=== PATIENT | male | born 1940 | race Caucasian/White ===

== ENCOUNTER 2018-01-17 08:59 | Inpatient (IN) | payer OTHER ==
[2018-01-17 10:10] LABS: Bicarbonate 28 mEq/L (21-31); Glucose Level 108 mg/dL (65-120); Lipase 19 U/L (22-51); Potassium 3.8 mEq/L (3.6-5.0); Sodium Level 140 mEq/L (135-145)
[2018-01-17 10:16] LABS: ALT/SGPT 17 IU/L (10-60); AST/SGOT 18 IU/L (10-42); Albumin 4.1 g/dL (3.2-5.5); Alkaline Phosphatase 79 IU/L (42-121); BUN Blood Urea Nitrogen 23 mg/dL (6-20); Bilirubin Direct 0.2 mg/dL (0-0.2); Protein, Total 7.2 g/dL (6.0-8.3)
[2018-01-17] MEDS ORDERED: NA CHLORIDE 0.9% 1,000 ML ONE ×2 (10:55→16:54)
--- NOTE | 2018-01-17 11:08 | RAD REPORT ---
EXAM DESCRIPTION: CTAbdomen Pelvis W Contrast - 01/17/2018 10:34 am CLINICAL HISTORY: Abdominal pain. COMPARISON: None. TECHNIQUE: Biphasic CT imaging of the abdomen and pelvis was performed with 100 ml non-ionic IV cont rast. All CT scans are performed using dose optimization technique as appropriate and may include automated exposure control or mA/KV adjustment according to patient size. FINDINGS: The lung bases are clear. The liver demonstrates several low-density lesions likely benign cysts. The spleen is mildly enlarged . The pancreas, adrenal glands are normal. Several renal cysts are present bilaterally, the largest o n the left measuring 4.8 cm. Moderate left hydronephrosis is present caused by a stone in the proximal left ureter (1230 HU) measu ring 9 mm in transverse dimension. No right-sided hydronephrosis. No bowel obstruction, free air, free fluid or abscess. Prominent fecal retention in the colon is seen . The appendix is normal. No evidence of significant lymphadenopathy. Aortoiliac atherosclerosis. Advanced lumbar degenerative changes with multilevel vacuum disc degeneration. IMPRESSION: 9 mm stone (1230 HU) proximal left ureter resulting in moderate left hydronephrosis. Prominent fecal retention in the colon.
[2018-01-17 11:20] LABS: Absolute Lymphocytes (CBC) 0.7 K/uL (0.7-4.9); Absolute Monocytes 0.5 K/uL (0.1-1.3); Absolute Neutrophil 15.7 K/uL (1.8-8.0); Basophils % 0.5 % (0-1.3); Eosinophils % 1.5 % (0-4.4); Hematocrit 44.2 % (39.6-49.0); Lymphocytes % 4.2 % (15.3-44.8); MCH 16.5 pg (27.0-35.0); MCV 57.9 fL (80-100); MPV 9.5 fL (7.6-11.3); Monocytes % 2.7 % (3.3-12.3); RBC Red Blood Cell Count 7.63 M/uL (4.33-5.43)
[2018-01-17] MEDS ORDERED: ALBUTEROL 2.5 MG/3 ML NEB SOL NEB PRN (11:40)
[2018-01-17] MEDS ORDERED: IPRATROPIUM BROM 0.5MG/2.5ML NEB PRN (11:40)
[2018-01-17] MEDS ORDERED: ONDANSETRON 4 MG/2 ML VIAL IV PRN (11:40)
--- NOTE | 2018-01-17 11:52 | ER ---
Nurse's Notes [facility] Name: Primo Santos Age: 77 yrs Sex: Male : 1940 Arrival Date: 01/17/2018 Time: 09:05 Bed 5 Private MD: Diagnosis: Hydronephrosis with renal and ureteral calculous obstruction Presentation: 01/17 09:13 Presenting complaint: EMS states: EMS states patient states he was constipated 3 days ae1 prior and took milk of magnesia and is now having diarrhea x 3 days. Denies abdominal pain. Transition of care: patient was not received from another setting of care. Onset of symptoms was January 15, 2018 at 06:00. Care prior to arrival: Medication(s) given: Milk of magnesia. 09:13 Acuity: ESTHELA 3 ae1 09:13 Method Of Arrival: EMS: [facility] ae1 12:54 Initial Sepsis Screen: Does the patient meet any 2 criteria? No. Patient's initial ae1 sepsis screen is negative. Does the patient have a suspected source of infection? No. Patient's initial sepsis screen is negative. Historical: - Allergies: 09:13 No Known Allergies; ae1 - Home Meds: 09:13 Metoprolol Tartrate Oral [Active]; Tramadol Oral [Active]; ae1 - PMHx: 09:13 Hypertension; COPD; chronic back pain; ae1 - PSHx: 09:13 Hernia repair; Knee surgery; back surgery T4; ae1 - Immunization history:: Adult Immunizations up to date. - Social history:: Smoking status: Patient/guardian denies using tobacco, but has a distant history of tobacco abuse. Screenin:09 Abuse screen: Denies threats or abuse. Nutritional screening: No deficits noted. ae1 Tuberculosis screening: No symptoms or risk factors identified. Fall Risk. Assessment: 09:15 General: Appears in no apparent distress. comfortable, Behavior is calm, cooperative. ae1 Pain: Complains of pain in abdomen. Neuro: Level of Consciousness is awake, alert, obeys commands, Oriented to person, place, time, situation. Cardiovascular: Heart tones S1 S2 present Patient's skin is warm and dry. Respiratory: Airway is patent Respiratory effort is even, unlabored, Respiratory pattern is regular, symmetrical, Breath sounds are clear bilaterally. GI: Bowel sounds present X 4 quads. 11:07 Reassessment: initial IV to the right AC infiltrated, IV discontinued, ice applied, New ae1 IV established by CT to the right wrist. 12:52 Reassessment: Called 2nd floor to give report to receiving nurse, spoke to Loree Ralph ae1 states they did not know they were receiving a patient so "it will be awhile" She states she will have Jose Antonio the receiving nurse return call. 12:58 : No signs and/or symptoms were reported regarding the genitourinary system. EENT: No ae1 signs and/or symptoms were reported regarding the EENT system. Derm: Bruising that is dark purple, on dorsal aspect of left forearm and left wrist. Musculoskeletal: No signs and/or symptoms reported regarding the musculoskeletal system. 13:10 Reassessment: Per provider Katelynn Parker ok to cancel blood cultures,. ae1 Vital Signs: 09:10 BP 137 / 88; Pulse 84; Resp 19; Temp 98.2(O); Pulse Ox 99% on R/A; Weight 91.17 kg (R); ae1 10:11 BP 120 / 70; Pulse 95; Resp 19; Pulse Ox 95% on R/A; ae1 11:22 BP 154 / 97; Pulse 88; Resp 16; Pulse Ox 99% on R/A; ae1 12:59 BP 159 / 88; Pulse 89; Resp 18 S; Pulse Ox 99% on R/A; ae1 ED Course: 09:05 Patient arrived in ED. jr8 09:05 Keith Muse PA is PHCP. jr8 09:05 Adeel Bar MD is Attending Physician. jr8 09:10 Nde Crowley, ORESTES is Primary Nurse. ae1 09:16 Triage completed. ae1 09:16 Placed in gown. Bed in low position. Call light in reach. Side rails up X2. Adult w/ ae1 patient. electronic device monitor on. Pulse ox on. NIBP on. Warm blanket given. 09:48 Initial lab(s) drawn, by me, sent to lab. Inserted saline lock: 22 gauge in right jb1 antecubital area, using aseptic technique. Blood collected. 10:12 Arm band placed on right wrist. ae1 10:34 CT Abd/Pelvis - W/Contrast In Process Unspecified. EDMS 11:09 Inserted saline lock: 22 gauge in left antecubital area, using aseptic technique. Blood ae1 collected. 11:33 EKG done, by radiation therapy technician. reviewed by Keith GARCIA. at1 11:50 Patricia Monsalve MD is Hospitalizing Provider. jr8 12:27 X-ray completed. Portable x-ray completed in exam room. Patient tolerated procedure jb2 well. 12:59 No provider procedures requiring assistance completed. Patient admitted, IV remains in ae1 place. Administered Medications: 11:07 Drug: NS 0.9% 1000 ml Route: IV; Rate: 1000 ml; Site: right wrist; ae1 12:56 Follow up: IV Status: Completed infusion ae1 12:40 Drug: Rocephin - (cefTRIAXone) 1 grams Route: IVPB; Infused Over: 30 mins; Site: left ae1 antecubital; 12:51 Follow up: IV Status: Completed infusion ae1 Outcome: 11:51 Decision to Hospitalize by Provider. jr8 13:04 Admitted to OR accompanied by nurse, family with patient, via stretcher, room OR suite. ae1 , with chart, Report called to ORESTES Clinton and Rut from OR called to get report before procedure. Patient now to be transferred. to OR. Registration notified. 13:04 Condition: stable 13:04 Instructed on the need for admit, Demonstrated understanding of instructions. 13:18 Patient left the ED. ae1 Signatures: Dispatcher [employer] EDMS Bob John jb1 Bora Farrell2 Keith Muse PA PA jr8 Lesley bertrand, bible reader EKG Tat1 Ned Crowley RN RN ae1
--- NOTE | 2018-01-17 11:52 | EDPHYS ---
Physician Documentation [facility] Name: Primo Santos Age: 77 yrs Sex: Male : 1940 Arrival Date: 01/17/2018 Time: 09:05 Bed 5 Private MD: ED Physician Adeel Bar HPI: 01/17 09:45 This 77 yrs old Male presents to ER via EMS with complaints of Diarrhea, Back Pain. jr8 09:45 The patient presents to the emergency department with nausea, vomiting, diarrhea. jr8 Onset: The symptoms/episode began/occurred acutely, 2 day(s) ago. Possible causes: unknown. The symptoms are aggravated by nothing. The symptoms are alleviated by nothing. Associated signs and symptoms: Pertinent positives: abdominal pain. Severity of symptoms: At their worst the symptoms were mild in the emergency department the symptoms are unchanged. The patient has not experienced similar symptoms in the past. The patient has not recently seen a physician. Patient stated that he felt constipated over the past couple of days. Took milk of magnesia. Since then has had diarrhea and lower abdominal cramping . Historical: - Allergies: 09:13 No Known Allergies; ae1 - Home Meds: 09:13 Metoprolol Tartrate Oral [Active]; Tramadol Oral [Active]; ae1 - PMHx: 09:13 Hypertension; COPD; chronic back pain; ae1 - PSHx: 09:13 Hernia repair; Knee surgery; back surgery T4; ae1 - Immunization history:: Adult Immunizations up to date. - Social history:: Smoking status: Patient/guardian denies using tobacco, but has a distant history of tobacco abuse. ROS: 09:45 Eyes: Negative for injury, pain, redness, and discharge, ENT: Negative for injury, jr8 pain, and discharge, Neck: Negative for injury, pain, and swelling, Cardiovascular: Negative for chest pain, palpitations, and edema, Respiratory: Negative for shortness of breath, cough, wheezing, and pleuritic chest pain, MS/Extremity: Negative for injury and deformity, Skin: Negative for injury, rash, and discoloration, Neuro: Negative for headache, weakness, numbness, tingling, and seizure. 09:45 Abdomen/GI: Positive for diarrhea, abdominal cramps, Negative for nausea and vomiting, abdominal distension, anorexia, dysphagia, hematemesis, black/tarry stool, rectal pain, rectal bleeding, bowel incontinence, flatulence. 09:45 Back: Positive for pain at rest, pain with movement, of the lumbar area. Exam: 09:45 Eyes: Pupils equal round and reactive to light, extra-ocular motions intact. Lids and jr8 lashes normal. Conjunctiva and sclera are non-icteric and not injected. Cornea within normal limits. Periorbital areas with no swelling, redness, or edema. ENT: Nares patent. No nasal discharge, no septal abnormalities noted. Tympanic membranes are normal and external auditory canals are clear. Oropharynx with no redness, swelling, or masses, exudates, or evidence of obstruction, uvula midline. Mucous membranes moist. Neck: Trachea midline, no thyromegaly or masses palpated, and no cervical lymphadenopathy. Supple, full range of motion without nuchal rigidity, or vertebral point tenderness. No Meningismus. Cardiovascular: Regular rate and rhythm with a normal S1 and S2. No gallops, murmurs, or rubs. Normal PMI, no JVD. No pulse deficits. Respiratory: Lungs have equal breath sounds bilaterally, clear to auscultation and percussion. No rales, rhonchi or wheezes noted. No increased work of breathing, no retractions or nasal flaring. Abdomen/GI: Soft, non-tender, with normal bowel sounds. No distension or tympany. No guarding or rebound. No evidence of tenderness throughout. Skin: Warm, dry with normal turgor. Normal color with no rashes, no lesions, and no evidence of cellulitis. MS/ Extremity: Pulses equal, no cyanosis. Neurovascular intact. Full, normal range of motion. Neuro: Awake and alert, GCS 15, oriented to person, place, time, and situation. Cranial nerves II-XII grossly intact. Motor strength 5/5 in all extremities. Sensory grossly intact. Cerebellar exam normal. Normal gait. 09:45 Back: pain, that is mild, of the left low back and left mid back, ROM is painful, with all movement, normal spinal alignment noted, CVA tenderness, is absent, vertebral tenderness, is not appreciated. Vital Signs: 09:10 BP 137 / 88; Pulse 84; Resp 19; Temp 98.2(O); Pulse Ox 99% on R/A; Weight 91.17 kg (R); ae1 10:11 BP 120 / 70; Pulse 95; Resp 19; Pulse Ox 95% on R/A; ae1 11:22 BP 154 / 97; Pulse 88; Resp 16; Pulse Ox 99% on R/A; ae1 12:59 BP 159 / 88; Pulse 89; Resp 18 S; Pulse Ox 99% on R/A; ae1 MDM: 09:05 Patient medically screened. [facility] 11:50 Data reviewed: vital signs, nurses notes, lab test result(s), EKG, radiologic studies, [facility] CT scan, plain films, and as a result, I will admit patient. Data interpreted: Pulse oximetry: on room air is 99 %. Interpretation: normal. Counseling: I had a detailed discussion with the patient and/or guardian regarding: the historical points, exam findings, and any diagnostic results supporting the discharge/admit diagnosis, lab results, radiology results, the need for further work-up and treatment in the hospital. Physician consultation: Opal Randall MD was called at 11:50, was contacted at 11:50, regarding consult, patient's condition, and will see patient. Physician consultation: Patricia Monsalve MD was called at 11:50, was contacted at 11:50, regarding admission, to the medical/surgical unit. and will see patient. 01/17 09:05 Order name: Basic Metabolic Panel; Complete Time: 10:19 [facility] 01/17 09:05 Order name: CBC with Diff [facility] 01/17 09:05 Order name: Creatinine for Radiology; Complete Time: 10:13 [facility] 01/17 09:05 Order name: Hepatic Function; Complete Time: 10:19 [facility] 01/17 09:05 Order name: Lipase; Complete Time: 10:19 [facility] 01/17 11:22 Order name: Manual Differential [facility] 01/17 10:13 Order name: CT Abd/Pelvis - W/Contrast; Complete Time: 11:09 [facility] 01/17 11:28 Order name: XRAY Chest (1 view) [facility] 01/17 11:28 Order name: Protime (+inr) [facility] 01/17 11:28 Order name: Ptt, Activated [facility] 01/17 11:28 Order name: XRAY KUB [facility] 01/17 11:43 Order name: Urinalysis [facility] 01/17 11:43 Order name: Blood Culture [facility] 01/17 09:05 Order name: IV Saline Lock; Complete Time: 09:49 [facility] 01/17 09:05 Order name: Labs collected and sent; Complete Time: 09:49 [facility] 01/17 11:27 Order name: NPO; Complete Time: 12:22 [facility] 01/17 11:28 Order name: EKG - Nurse/Tech; Complete Time: 12:22 [facility] 01/17 11:28 Order name: EKG; Complete Time: 11:28 [facility] 01/17 11:43 Order name: CONS Physician Consult [facility] 01/17 11:43 Order name: NPO [facility] Administered Medications: 11:07 Drug: NS 0.9% 1000 ml Route: IV; Rate: 1000 ml; Site: right wrist; ae1 12:56 Follow up: IV Status: Completed infusion ae1 12:40 Drug: Rocephin - (cefTRIAXone) 1 grams Route: IVPB; Infused Over: 30 mins; Site: left ae1 antecubital; 12:51 Follow up: IV Status: Completed infusion ae1 Disposition: 01/17/18 11:51 Hospitalization ordered by Patricia Monsalve for Inpatient Admission. Preliminary diagnosis is Hydronephrosis with renal and ureteral calculous obstruction. - Bed requested for Telemetry/MedSurg (Inpatient). - Status is Inpatient Admission. ae1 - Condition is Stable. - Problem is new. - Symptoms have improved. UTI on Admission? No Addendum: 01/20/2018 20:55 Co-signature as Attending Physician, Adeel Bar MD. r n Signatures: Dispatcher [employer] [facility] Salina Souza RN RN dw Adeel Bar MD MD rn Roszak, Josh, PA PA jr8 Ned Crowley RN RN ae1 Corrections: (The following items were deleted from the chart) 01/17 11:33 09:45 Back: pain, that is mild, of the lumbar area, ROM is painful, with all movement, jr8 normal spinal alignment noted, CVA tenderness, is absent, vertebral tenderness, is not appreciated, jr8 12:25 11:51 Hospitalization Ordered by Patricia Monsalve MD for Inpatient Admission. Preliminary dw diagnosis is Hydronephrosis with renal and ureteral calculous obstruction. Bed requested for Telemetry/MedSurg (Inpatient). Status is Inpatient Admission. Condition is Stable. Problem is new. Symptoms have improved. UTI on Admission? No. jr8 13:18 12:25 01/17/2018 11:51 Hospitalization Ordered by Patricia Monsalve MD for Inpatient ae1 Admission. Preliminary diagnosis is Hydronephrosis with renal and ureteral calculous obstruction. Bed requested for Telemetry/MedSurg (Inpatient). Status is Inpatient Admission. Condition is Stable. Problem is new. Symptoms have improved. UTI on Admission? No. dw
[2018-01-17] MEDS ORDERED: CEFTRIAXONE/SWI 1gm 1 GM/10 ML SYR ONE (12:24)
[2018-01-17] MEDS ORDERED: CEFTRIAXONE/SWI 1gm 1 GM/10 ML SYR IV SCH (13:00)
[2018-01-17] MEDS ORDERED: Ringers Lactate 1,000 ML IV ONE (13:25)
[2018-01-17 13:26] LABS: Protime INR 1.14
--- NOTE | 2018-01-17 13:29 | RAD REPORT ---
EXAM DESCRIPTION: RAD - Abdomen 1 View (KUB) - 01/17/2018 1:14 pm CLINICAL HISTORY: Abdomen pain. FINDINGS: A 9 millimeter calculus overlies the left transverse process of L4. Moderate to marked left hydronephrosis is present.
[2018-01-17 13:31] LABS: Platelet Estimate INCR
[2018-01-17 13:32] LABS: Anisocytosis 2+; Blood Morphology Comment NOTED (NOT SEEN); Elliptocytes 2+; Hypochromasia 1+; Poikilocytosis 2+
--- NOTE | 2018-01-17 13:32 | RAD REPORT ---
EXAM DESCRIPTION: Shari Single View01/17/2018 1:00 pm CLINICAL HISTORY: Abdominal pain COMPARISON: none FINDINGS: The lungs appear clear of acute infiltrate. The heart is normal size. The aorta is tortuo us/ectatic IMPRESSION: No acute abnormalities displayed
[2018-01-17] MEDS ORDERED: FENTANYL CITR 100 MCG/2 ML ONE (13:37)
[2018-01-17] MEDS ORDERED: PROPOFOL 200 MG/20 ML VIAL IV ONE (13:37)
[2018-01-17] MEDS ORDERED: LIDOCAINE 2% MPF 5 ML VIAL ONE (13:37)
[2018-01-17] MEDS ORDERED: Mastisol Adhesive Liq ONE (14:19)
[2018-01-17] MEDS: TAMSULOSIN 0.4 MG SR CAP PO SCH (15:15)
[2018-01-17] MEDS ORDERED: MORPHINE 4 MG/ML SYR ONE (15:17)
--- NOTE | 2018-01-17 15:49 | EKG ---
Test Date: 2018-01-17 Test Time: 11:33:24 Coordinator Of Health Services: MEMO MEASUREMENT RESULTS: Intervals: Rate: 95 [place]: 182 QRSD: 132 QT: 414 QTc: 520 [place]: P: 111 [place]: 182 QRS: -71 T: 20 INTERPRETIVE STATEMENTS: Sinus rhythm with premature atrial complexes Right bundle branch block Left axis Abnormal ECG No previous ECG available for comparison Electronically Signed On 01-17-18 15:48:53 CDT by Ras Cote
--- NOTE | 2018-01-17 16:25 | P.HP ---
Certification for Inpatient Patient admitted to: Observation With expected LOS: <2 Midnights Patient will require the following post-hospital care: None Practitioner: I am a practitioner with admitting privileges, knowledge of patient current condition, hospital course, and medical plan of care. Services: Services provided to patient in accordance with Admission requirements found in Title 42 Section 412.3 of the Code of Federal Regulations Patient History Date of Service: 01/17/18 Primary Care Provider: None Reason for admission: Nephrolithiasis with hydronephrosis History of Present Illness: This is a 77-year-old male with significant past medical history of hypertension , COPD, back pain who presented to the ED complaining of having some back pain that started about 2-3 days ago and got progressively worse. Patient stated that he has been having some intermittent pain that has been going on for a long time however this pain was different and thus he decided to come to the ER. Complains of Nausea and vomiting as well. Chills positive but denies fever. In the ER patient was found to have a 9 mm stone on the left side along with Elevated WBC. He was thus referred for admission for further care. Allergies No Known Allergies Allergy (Unverified 01/17/18 12:19) - Past Medical/Surgical History Has patient received pneumonia vaccine in the past: No - Social History Smoking Status: Never smoker Alcohol use: No CD- Drugs: No Caffeine use: No Place of Residence: Home Review of Systems General: As per HPI Physical Examination - Vital Signs Temperature: 97.5 F Blood Pressure: 161/95 Pulse: 89 Respirations: 16 - Physical Exam General: Alert, In no apparent distress, Acute distress HEENT: Atraumatic Neck: Supple Respiratory: Clear to auscultation bilaterally, Normal air movement Cardiovascular: Regular rate/rhythm, Normal S1 S2, Abnormal pulses (Tachycardia) Gastrointestinal: Normal bowel sounds, Soft and benign, Tenderness (CVA tenderness on the left ) Musculoskeletal: No tenderness Integumentary: No rashes Neurological: Normal speech, Normal tone, Normal affect, Abnormal strength (Due to the pain ) Lymphatics: No axilla or inguinal lymphadenopathy - Studies Laboratory Data (last 24 hrs) 01/17/18 11:00: WBC 17.2 H, Hgb 12.6 L, Hct 44.2, Plt Count 509 H 01/17/18 09:45: PT 13.5 H, INR 1.14, APTT 40.9 H 01/17/18 09:45: Creatinine 0.76 01/17/18 09:45: Sodium 140, Potassium 3.8, BUN 23 H, Creatinine 0.80, Glucose 108, Total Bilirubin 1.0, AST 18, ALT 17, Alkaline Phosphatase 79, Lipase 19 L Assessment and Plan - Problems (Diagnosis) (1) Sepsis Current Visit: Yes Status: Acute Plan: Most Likely 2.2 to UTI 2.2 to Stone -IV abx and IV fluids -Blood culture and Urine culture pending Qualifiers: Sepsis type: sepsis due to unspecified organism Qualified Code(s): A41.9 - Sepsis, unspecified organism (2) Nephrolithiasis Current Visit: Yes Status: Acute Plan: 9 MM stone on the left. -Urology consulted. Appreciate reccs -Surgery Planned for today -NPO, IV fluids and abx for now (3) Hydronephrosis concurrent with and due to calculi of kidney and ureter Current Visit: Yes Status: Acute Plan: See # 2 (4) HTN (hypertension) Current Visit: Yes Status: Chronic Qualifiers: Hypertension type: essential hypertension Qualified Code(s): I10 - Essential (primary) hypertension (5) COPD (chronic obstructive pulmonary disease) Current Visit: Yes Status: Chronic Qualifiers: COPD type: chronic bronchitis Chronic bronchitis type: mixed simple and mucopurulent Qualified Code(s): J41.8 - Mixed simple and mucopurulent chronic bronchitis Discharge Plan: Home Plan to discharge in: 24 Hours - Advance Directives Does patient have a Living Will: Yes Does patient have a Durable POA for Healthcare: Yes
[2018-01-17] MEDS: NA CHLORIDE 0.9% 1,000 ML IV SCH ×2 (16:59→22:00)
[2018-01-17] MEDS: HYDROCODONE/APAP 5/325 MG TAB PO PRN ×2 (17:54→23:49)
--- NOTE | 2018-01-17 18:13 | RAD REPORT ---
EXAM DESCRIPTION: RAD - Urethrocystogrphy Retrograde - 01/17/2018 2:33 pm CLINICAL HISTORY: Abdominal pain/ICD N20.0. COMPARISON: None. FINDINGS: Two fluoroscopic spot images were obtained for a retrograde cystogram. The left ureter was cannulated and contrast administered. The exam was performed by Dr. Randall. A 9 mm calculus is present within the proximal left ureter. Moderate left hydronephrosis is seen. Subsequently a left ureteral stent was placed. Please refer to Dr. Randall's report for additional findings.
--- NOTE | 2018-01-17 18:33 | CON ---
History Of Present Illness: A 77-year-old gentleman came in with left flank pain. CAT scan showed a 9-mm stone at the left UPJ with hydronephrosis. The patient is in pain. He first started out with constipation and took some milk of magnesia and then diarrhea and then some abdominal flank pain. Wh en he came to the ER, he was found to have a kidney stone. He has a history of passing [address] in his life. He just moved back to [place] from [place] in 2003. He has never had stone surgery . Never had stents or ESWL performed before. Past Medical History: Significant for hypertension, COPD, and chronic back pain. Allergies: NO KNOWN DRUG ALLERGIES. Home Medications: Metoprolol tartrate and tramadol for back pain. Past Surgical History: Hernia repair, knee surgery, back surgery T4. Immunizations: Up-to-date. Social History: Distant history of smoking, but none recently. Physical Examination: Vital Signs: Stable. BP 137/88, pulse 84, respirations 19, temperature 98.2, and sats 99%. HEENT: Atraumatic, normocephalic. Chest: Clear. Heart: Regular rate and rhythm. Abdomen: Soft, nontender. Slight left flank tenderness. : Has a phimosis. The testicles are descended. No masses. Nontender. Extremities: Normal range of motion. Laboratory Data: BUN is 23. White count 17.2, H and H 12 and 44, and platelet count 509. Coagulati on, PT normal at 13.5 and PTT 40.9. Chemistry shows sodium 140, potassium 3.8, chloride 106, carbon dioxide 28, BUN 23, and creatinine 0.8. GFR greater than 90, glucose 108, and calcium 9.2. Bilirubin and LFTs all normal. Lipase is low at 19. UA pending. Assessment: A 9-mm left ureteropelvic junction stone and elevated white count. The patient received a dose of Rocephin in the ER. He is going to go for cystoscopy retrograde and stent placement, not only for the pain, but for possible rule out infection with the elevated white count. We will try to send a urine from the renal pelvis for this. All the general information, alternatives, and risks w ere given and I will wait about 8 hours after the patient was n.p.o. to proceed with surgery. Thank you very much indication. LIAT/RITESH Voice ID: [id number] Report ID: [id number]
[2018-01-17] MEDS ORDERED: MORPHINE 4 MG/ML SYR IV PRN (20:03)
[2018-01-18] MEDS ORDERED: Morphine 2 MG/2 ML SYR IV PRN (06:58)
[2018-01-18 07:47] LABS: Absolute Lymphocytes (CBC) 0.5 K/uL (0.7-4.9); Absolute Monocytes 0.6 K/uL (0.1-1.3); Absolute Neutrophil 18.9 K/uL (1.8-8.0); Basophils % 0.4 % (0-1.3); Eosinophils % 0.7 % (0-4.4); Hematocrit 44.7 % (39.6-49.0); Lymphocytes % 2.6 % (15.3-44.8); MCH 16.6 pg (27.0-35.0); MCV 58.3 fL (80-100); Monocytes % 3.1 % (3.3-12.3)
[2018-01-18 07:56] LABS: RBC Red Blood Cell Count 7.67 M/uL (4.33-5.43)
[2018-01-18] MEDS: NA CHLORIDE 0.9% 1,000 ML IV SCH ×3 (08:00→17:48)
[2018-01-18 08:18] LABS: BUN Blood Urea Nitrogen 19 mg/dL (6-20); Bicarbonate 25 mEq/L (21-31); Glucose Level 93 mg/dL (65-120); Potassium 4.3 mEq/L (3.6-5.0); Sodium Level 139 mEq/L (135-145)
[2018-01-18] MEDS ORDERED: ONDANSETRON 4 MG/2 ML VIAL IV PRN (08:40)
[2018-01-18] MEDS ORDERED: CEFTRIAXONE 1 GM/NS 50 ML 1 GM/50 ML BAG IV SCH (09:00)
[2018-01-18] MEDS: CEFTRIAXONE/SWI 1gm 1 GM/10 ML SYR IV SCH (09:00)
[2018-01-18] MEDS: TAMSULOSIN 0.4 MG SR CAP PO SCH (09:04)
[2018-01-18] MEDS: HYDROCODONE/APAP 5/325 MG TAB PO PRN ×2 (10:02→21:53)
--- NOTE | 2018-01-18 10:51 | P.PN ---
Subjective Date of Service: 01/18/18 Primary Care Provider: None Chief Complaint: Nephrolithiasis with hydronephrosis pt seen and examined with RN. Still complains about pain and having diarrhea. No other complains to offer at this time. Review of Systems General: As per HPI Physical Examination - Vital Signs Temperature: 98.1 F Blood Pressure: 129/59 Pulse: 84 Respirations: 16 Pulse Ox (%): 96 - Physical Exam General: Alert, In no apparent distress, Oriented x3 HEENT: Atraumatic, PERRLA, EOMI Neck: Supple, JVD not distended Respiratory: Clear to auscultation bilaterally, Normal air movement Cardiovascular: Regular rate/rhythm, Normal S1 S2 Gastrointestinal: Normal bowel sounds, No tenderness Musculoskeletal: No tenderness Integumentary: No rashes Neurological: Normal speech, Normal tone, Normal affect Lymphatics: No axilla or inguinal lymphadenopathy - Studies Laboratory Data (last 24 hrs) 01/17/18 11:00: WBC 17.2 H, Hgb 12.6 L, Hct 44.2, Plt Count 509 H 01/17/18 09:45: PT 13.5 H, INR 1.14, APTT 40.9 H Medications List Reviewed: Yes Assessment & Plan - Problems (Diagnosis) (1) Sepsis Current Visit: Yes Status: Acute Plan: Most Likely 2.2 to UTI 2.2 to Stone -IV Rocephin and IV fluids -Blood culture and Urine culture pending Qualifiers: Sepsis type: sepsis due to unspecified organism Qualified Code(s): A41.9 - Sepsis, unspecified organism (2) Nephrolithiasis Current Visit: Yes Status: Acute Plan: 9 MM stone on the left. -Urology consulted. Appreciate reccs -S/p Cysto with stent placement -CLD, IV fluids and abx for now (3) Hydronephrosis concurrent with and due to calculi of kidney and ureter Current Visit: Yes Status: Acute Plan: See # 2 (4) HTN (hypertension) Current Visit: Yes Status: Chronic Qualifiers: Hypertension type: essential hypertension Qualified Code(s): I10 - Essential (primary) hypertension (5) COPD (chronic obstructive pulmonary disease) Current Visit: Yes Status: Chronic Qualifiers: COPD type: chronic bronchitis Chronic bronchitis type: mixed simple and mucopurulent Qualified Code(s): J41.8 - Mixed simple and mucopurulent chronic bronchitis Discharge Plan: Home Plan to discharge in: 48 Hours - Code Status/Comfort Care Code Status Assessed: Yes Critical Care: No
--- NOTE | 2018-01-18 15:55 | PN ---
Subjective: The patient had a fever last night. Does not feel like himself. He is not tolerating h is breakfast much. At 1:29 a.m., his temperature was 99, midnight it was 99.8. Latest temperature i s 98.9, pulse 91, respirations 18, BP 151/85. Objective: His right arm is swollen with the IV, so we will need to get that changed to the left arm . His white count was up today to 20,300. His urine culture is still pending. Assessment: Status post stent of 9 mm left UPJ stone. The patient had a fever. We will await cultu re results, his blood culture and urine culture. He has urine culture pending. Blood cultures were canceled. We will continue IV antibiotics. He is currently on Rocephin 1 g daily for now. He may a mbulate with assistance today. We will check another white count tomorrow. LIAT/RITESH Voice ID: [id number] Report ID: [id number]
[2018-01-18] MEDS ORDERED: POLYETHYL GLY 3350 17 GM/DOSE PO ONE (16:27)
[2018-01-19] MEDS: NA CHLORIDE 0.9% 1,000 ML IV SCH ×2 (05:00→15:12)
[2018-01-19 06:31] LABS: Absolute Lymphocytes (CBC) 0.6 K/uL (0.7-4.9); Absolute Monocytes 0.6 K/uL (0.1-1.3); Absolute Neutrophil 17.8 K/uL (1.8-8.0); Basophils % 0.5 % (0-1.3); Eosinophils % 1.6 % (0-4.4); Hematocrit 43.1 % (39.6-49.0); Lymphocytes % 3.3 % (15.3-44.8); MCH 16.7 pg (27.0-35.0); MCV 57.7 fL (80-100); MPV 9.4 fL (7.6-11.3); RBC Red Blood Cell Count 7.47 M/uL (4.33-5.43)
[2018-01-19] MEDS: TAMSULOSIN 0.4 MG SR CAP PO SCH (08:43)
[2018-01-19] MEDS: CEFTRIAXONE/SWI 1gm 1 GM/10 ML SYR IV SCH (08:44)
[2018-01-19] MEDS ORDERED: VANCOMYCIN 1.25 GM in NA CHLORIDE 0.9% 250 ML IVPB SCH (09:00)
[2018-01-19] MEDS: VANCOMYCIN 1.75 GM in NA CHLORIDE 0.9% 500 ML IVPB SCH ×2 (10:41→22:10)
--- NOTE | 2018-01-19 11:05 | RAD REPORT ---
EXAM DESCRIPTION: VAS - Extremity Venous Uni Ltd - 01/19/2018 10:28 am CLINICAL HISTORY: Right upper extremity pain and swelling COMPARISON: None. FINDINGS: Right upper extremity venous system was interrogated with Doppler technique. Normal flow, compressibility and augmentation was noted. There is no DVT present.Mild soft tissue edema is seen in the antecubital fossa region. IMPRESSION: No evidence of right upper extremity deep venous thrombosis.
[2018-01-19] MEDS: HYDROCODONE/APAP 5/325 MG TAB PO PRN ×2 (12:47→20:45)
--- NOTE | 2018-01-19 12:47 | RAD REPORT ---
EXAM DESCRIPTION: RAD - Abdomen 1 View (KUB) - 01/19/2018 9:36 am CLINICAL HISTORY: Stent placement. COMPARISON: 01/17/2022 FINDINGS: The bowel gas pattern is non-obstructive. No evidence of free air or pneumatosis. Left-wilmar ed double-J stent is in place. The proximal aspect the left-sided stent is somewhat redundantly coile d but in the expected renal pelvis location. 9 mm calculus is seen along the course of the proximal s tent the left of the L3 level. Distal aspect the stent is the expected position.
--- NOTE | 2018-01-19 12:56 | P.PN ---
Subjective Date of Service: 01/19/18 Primary Care Provider: None Chief Complaint: Nephrolithiasis with hydronephrosis pt seen and examined with RN. Still complains about pain and having diarrhea. No other complains to offer at this time. Review of Systems General: As per HPI Physical Examination - Vital Signs Temperature: 98.0 F Blood Pressure: 167/79 Pulse: 99 Respirations: 16 Pulse Ox (%): 97 - Physical Exam General: Alert, In no apparent distress HEENT: Atraumatic, PERRLA, EOMI Neck: Supple, JVD not distended Respiratory: Clear to auscultation bilaterally, Normal air movement Cardiovascular: Regular rate/rhythm, Normal S1 S2 Gastrointestinal: Normal bowel sounds, No tenderness Musculoskeletal: No tenderness Integumentary: No rashes Neurological: Normal speech, Normal tone, Normal affect Lymphatics: No axilla or inguinal lymphadenopathy - Studies Microbiology Data (last 24 hrs): 01/17/18 14:30 Catheterized Urine [place] Count - Final <10,000 CFU/ML. 01/17/18 14:30 Catheterized Urine - Final Medications List Reviewed: Yes Assessment & Plan - Problems (Diagnosis) (1) Sepsis Current Visit: Yes Status: Acute Plan: Most Likely 2.2 to UTI 2.2 to Stone -IV Rocephin and IV fluids -Blood culture and Urine culture Negative -Leukocytosis improving today. Qualifiers: Sepsis type: sepsis due to unspecified organism Qualified Code(s): A41.9 - Sepsis, unspecified organism (2) Nephrolithiasis Current Visit: Yes Status: Acute Plan: 9 MM stone on the left. -Urology consulted. Appreciate reccs -S/p Cysto with stent placement -CLD, IV fluids and abx for now -Lithotripsy on saturday (3) Hydronephrosis concurrent with and due to calculi of kidney and ureter Current Visit: Yes Status: Acute Plan: See # 2 (4) HTN (hypertension) Current Visit: Yes Status: Chronic Qualifiers: Hypertension type: essential hypertension Qualified Code(s): I10 - Essential (primary) hypertension (5) COPD (chronic obstructive pulmonary disease) Current Visit: Yes Status: Chronic Qualifiers: COPD type: chronic bronchitis Chronic bronchitis type: mixed simple and mucopurulent Qualified Code(s): J41.8 - Mixed simple and mucopurulent chronic bronchitis Discharge Plan: Home Plan to discharge in: 48 Hours Critical Care: Yes
--- NOTE | 2018-01-19 13:03 | RAD REPORT ---
EXAM DESCRIPTION: CT - Abdomen Pelvis Wo Contrast - 01/19/2018 9:51 am CLINICAL HISTORY: Abdominal pain. Stent placement COMPARISON: 01/17/2015 TECHNIQUE: CT imaging of the abdomen and pelvis was performed without contrast. Solid organ, bowel a nd vascular assessment is limited due to lack of IV and oral contrast. All CT scans are performed using dose optimization technique as appropriate and may include automated exposure control or mA/KV adjustment according to patient size. FINDINGS: Since the prior examination, left-sided double-J stent has been placed. The proximal aspec t of the stent is within the left renal pelvis, although slightly redundantly coiled. Along the proxi mal aspect of the stent, the previously noted 9 mm stone is noted, unchanged in position. The distal aspect of the stent is in the urinary bladder abutting the Ron catheter bulb. Small amount of air s een in the left collecting system along with mild hyperdense fluid which could be mild blood product. Right nephrolithiasis is noted with stone present measuring 4 mm. No right-sided hydronephrosis. No additional new finding is seen since 01/17/[address] study. IMPRESSION: A left sided double-J stent has been placed as detailed above since the comparative stud y. The proximal aspect of the stent is somewhat redundant coiled but lies within the left renal pelvi s. Proximal left ureter stone (9 mm) remains in place adjacent to the stent. Mild increased density i n the left pelvicaliceal system probably represents a small amount of blood product. A limited non-contrast examination was performed as detailed.
--- NOTE | 2018-01-19 14:07 | PN ---
Subjective: The patient complained of persistent back pain. This was the same as when he came in. He has a history of chronic pains any way. He has been having bowel movements. He also complained a bout large movement this morning that he thought was kind of rough. He says he has low confidence in the nursing care. Objective: His white count is 19,000 down from 21,000, not as much as I expected, so we are going to cover with some vancomycin along with the Rocephin for more gram-positive coverage. Cultures have n ot grown anything so far. We will also repeat a CT scan, make sure the hydronephrosis is not any wor se. Check location of the stone. Physical therapy to ambulate him. Head nurse to look into his com plaints. Restart his SCDs and he says he has some blood disorders, so the son will get a whole of th e labs and bring them so we can see. What he is talking about is to do phlebotomy sometime, so it so unds like he has erythrocytosis or something like that, so we will try to wait for this infection to get better. LIAT/RITESH Voice ID: [id number] Report ID: [id number]
[2018-01-19] MEDS: DOCUSATE NA 100 MG CAP PO SCH (20:46)
[2018-01-20] MEDS: NA CHLORIDE 0.9% 1,000 ML IV SCH ×3 (01:00→21:34)
[2018-01-20] MEDS: HYDROCODONE/APAP 5/325 MG TAB PO PRN ×3 (06:40→21:24)
[2018-01-20] MEDS: TAMSULOSIN 0.4 MG SR CAP PO SCH (10:57)
[2018-01-20] MEDS: CEFTRIAXONE/SWI 1gm 1 GM/10 ML SYR IV SCH (10:57)
[2018-01-20] MEDS: DOCUSATE NA 100 MG CAP PO SCH ×2 (10:57→21:23)
[2018-01-20 11:53] LABS: Absolute Lymphocytes (CBC) 0.6 K/uL (0.7-4.9); Absolute Monocytes 0.6 K/uL (0.1-1.3); Absolute Neutrophil 16.8 K/uL (1.8-8.0); Basophils % 0.6 % (0-1.3); Eosinophils % 1.8 % (0-4.4); Hematocrit 43.7 % (39.6-49.0); Lymphocytes % 3.4 % (15.3-44.8); MCH 16.6 pg (27.0-35.0); MCV 57.7 fL (80-100); MPV 10.1 fL (7.6-11.3); Monocytes % 3.1 % (3.3-12.3); RBC Red Blood Cell Count 7.58 M/uL (4.33-5.43)
[2018-01-20 12:26] LABS: Platelet Estimate ADEQ; Toxic Granulation 1+; Urine White Blood Cell Casts DIFF
[2018-01-20 12:27] LABS: Anisocytosis 1+; Blood Morphology Comment NOTED (NOT SEEN); Hypochromasia 3+; Platelets, Giant PRESENT
[2018-01-20] MEDS: VANCOMYCIN 1.75 GM in NA CHLORIDE 0.9% 500 ML IVPB SCH ×2 (12:50→22:00)
--- NOTE | 2018-01-20 18:11 | PN ---
Subjective: Family brought in the patient in laboratory. Apparently, he has some blood dyscrasias, where has elevated white count, H and H, and platelets. He was treated by vineyard tender/oncologist treasure ramos. Therefore, his white count is normally high about 15 to 16, yesterday was 19. Today, his wh ite count is pending. I think with this in mind, it is safe to go ahead and treat the patient's 9 mm stone seen along the course of the proximal stent to the level of L3. We can do this tomorrow and h opefully can be discharged after that. At first, he was concerned about elevated white count due to infection, but was having no fevers and no other serious symptoms. CT scan revealed no obstruction, so we will try to expedite this for him. LIAT/RITESH Voice ID: [id number] Report ID: [id number]
[2018-01-20] MEDS: METOPROLOL TAR 25 MG TAB PO SCH (21:25)
[2018-01-20] MEDS: PANTOPRAZOLE 40MG TABLET PO SCH (21:26)
[2018-01-21] MEDS: HYDROCODONE/APAP 5/325 MG TAB PO PRN ×2 (02:11→14:19)
[2018-01-21 05:16] LABS: Absolute Lymphocytes (CBC) 0.7 K/uL (0.7-4.9); Absolute Monocytes 0.6 K/uL (0.1-1.3); Absolute Neutrophil 16.8 K/uL (1.8-8.0); Basophils % 0.3 % (0-1.3); Eosinophils % 2.4 % (0-4.4); Hematocrit 45.2 % (39.6-49.0); Lymphocytes % 3.6 % (15.3-44.8); MCV 58.5 fL (80-100); MPV 9.6 fL (7.6-11.3); Monocytes % 3.5 % (3.3-12.3); RBC Red Blood Cell Count 7.73 M/uL (4.33-5.43)
[2018-01-21] MEDS: NA CHLORIDE 0.9% 1,000 ML IV SCH ×2 (05:36→20:00)
[2018-01-21 05:51] LABS: ALT/SGPT 13 IU/L (10-60); AST/SGOT 20 IU/L (10-42); Alkaline Phosphatase 71 IU/L (42-121); BUN Blood Urea Nitrogen 14 mg/dL (6-20); Bicarbonate 23 mEq/L (21-31); Glucose Level 93 mg/dL (65-120); Potassium 4.3 mEq/L (3.6-5.0); Protein, Total 5.5 g/dL (6.0-8.3); Sodium Level 139 mEq/L (135-145)
[2018-01-21] MEDS ORDERED: TRAZODONE 50 MG TABLET PO PRN (09:45)
[2018-01-21] MEDS: DOCUSATE NA 100 MG CAP PO SCH ×2 (09:58→22:04)
[2018-01-21] MEDS: PANTOPRAZOLE 40MG TABLET PO SCH ×2 (09:58→22:04)
[2018-01-21] MEDS: TAMSULOSIN 0.4 MG SR CAP PO SCH (09:58)
[2018-01-21] MEDS: CEFTRIAXONE/SWI 1gm 1 GM/10 ML SYR IV SCH (09:58)
[2018-01-21] MEDS: METOPROLOL TAR 25 MG TAB PO SCH ×2 (09:58→22:04)
[2018-01-21] MEDS ORDERED: VANCOMYCIN 1.75 GM in NA CHLORIDE 0.9% 500 ML IVPB SCH (10:00)
[2018-01-21] MEDS ORDERED: Ringers Lactate 1,000 ML IV ONE ×2 (10:43→13:28)
[2018-01-21] MEDS ORDERED: FENTANYL CITR 100 MCG/2 ML ONE (10:52)
[2018-01-21] MEDS ORDERED: MIDAZOLAM HCL 2 MG/2 ML INJ ONE (10:52)
[2018-01-21] MEDS ORDERED: PROPOFOL 200 MG/20 ML VIAL IV ONE (10:52)
[2018-01-21] MEDS ORDERED: EPHEDRINE SULF 50 MG/5 ML SYR ONE (11:58)
--- NOTE | 2018-01-21 12:16 | P.PN ---
Subjective Date of Service: 01/21/18 Primary Care Provider: None Chief Complaint: Nephrolithiasis with hydronephrosis pt seen and examined with RN. Case D/W with Cardiology. Pt has not been able to sleep for last two nights per family. However, he currently is very sleepy. Awaiting lithotripsy today Review of Systems General: As per HPI Physical Examination - Vital Signs Temperature: 98.8 F Blood Pressure: 161/95 Pulse: 84 Respirations: 18 Pulse Ox (%): 96 - Physical Exam General: Alert, In no apparent distress HEENT: Atraumatic, PERRLA, EOMI Neck: Supple, JVD not distended Respiratory: Clear to auscultation bilaterally, Normal air movement Cardiovascular: Regular rate/rhythm, Normal S1 S2 Gastrointestinal: Normal bowel sounds, No tenderness Musculoskeletal: No tenderness Integumentary: No rashes Neurological: Normal speech, Normal tone, Normal affect Lymphatics: No axilla or inguinal lymphadenopathy - Studies Medications List Reviewed: Yes Assessment & Plan - Problems (Diagnosis) (1) Sepsis Onset Date: 01/20/18 Current Visit: Yes Status: Acute Plan: Most Likely 2.2 to UTI 2.2 to Stone -IV Rocephin and IV fluids -Blood culture and Urine culture Negative -Leukocytosis improving today. Qualifiers: Sepsis type: sepsis due to unspecified organism Qualified Code(s): A41.9 - Sepsis, unspecified organism (2) Nephrolithiasis Onset Date: 01/20/18 Current Visit: Yes Status: Acute Plan: 9 MM stone on the left. -Urology consulted. Appreciate reccs -S/p Cysto with stent placement -CLD, IV fluids and abx for now -Lithotripsy today (3) Hydronephrosis concurrent with and due to calculi of kidney and ureter Onset Date: 01/20/18 Current Visit: Yes Status: Acute Plan: See # 2 (4) HTN (hypertension) Onset Date: 01/20/18 Current Visit: Yes Status: Chronic Qualifiers: Hypertension type: essential hypertension Qualified Code(s): I10 - Essential (primary) hypertension (5) COPD (chronic obstructive pulmonary disease) Onset Date: 01/20/18 Current Visit: Yes Status: Chronic Qualifiers: COPD type: chronic bronchitis Chronic bronchitis type: mixed simple and mucopurulent Qualified Code(s): J41.8 - Mixed simple and mucopurulent chronic bronchitis
[2018-01-21] MEDS ORDERED: Mastisol Adhesive Liq ONE (12:23)
[2018-01-21] MEDS ORDERED: KETOROLAC 30 MG/ML INJ ONE (12:29)
[2018-01-21] MEDS ORDERED: MORPHINE 4 MG/ML SYR IV PRN (14:26)
--- NOTE | 2018-01-21 15:18 | P.DS ---
Admission Date: 01/17/18 Discharge Date: 01/21/18 Primary Care Provider: Lennox Disposition: ROUTINE DISCHARGE Discharge Condition: GOOD Reason for Admission: Nephrolithiasis with hydronephrosis Consultations: urology Procedures: Cystoscopy with Stent placement and Lithotripsy - Problems (1) Sepsis Onset Date: 01/20/18 Current Visit: Yes Status: Acute Qualifiers: Sepsis type: sepsis due to unspecified organism Qualified Code(s): A41.9 - Sepsis, unspecified organism (2) Nephrolithiasis Onset Date: 01/20/18 Current Visit: Yes Status: Acute (3) Hydronephrosis concurrent with and due to calculi of kidney and ureter Onset Date: 01/20/18 Current Visit: Yes Status: Acute (4) HTN (hypertension) Onset Date: 01/20/18 Current Visit: Yes Status: Chronic Qualifiers: Hypertension type: essential hypertension Qualified Code(s): I10 - Essential (primary) hypertension (5) COPD (chronic obstructive pulmonary disease) Onset Date: 01/20/18 Current Visit: Yes Status: Chronic Qualifiers: COPD type: chronic bronchitis Chronic bronchitis type: mixed simple and mucopurulent Qualified Code(s): J41.8 - Mixed simple and mucopurulent chronic bronchitis Brief History of Present Illness: This is a 77-year-old male with significant past medical history of hypertension , COPD, back pain who presented to the ED complaining of having some back pain that started about 2-3 days ago and got progressively worse. Patient stated that he has been having some intermittent pain that has been going on for a long time however this pain was different and thus he decided to come to the ER. Complains of Nausea and vomiting as well. Chills positive but denies fever. In the ER patient was found to have a 9 mm stone on the left side along with Elevated WBC. He was thus referred for admission for further care. Hospital Course: Overall during the hospital stay patient remained stable. The patient was initially admitted to the hospital for sepsis most likely secondary to nephrolithiasis most likely secondary to urinary stone. Patient on a cystoscopy done with stent placement by urology. Patient remained on IV antibiotics and was scheduled for lithotripsy. Patient had lithotripsy done today in the hospital and was able to successfully complete the stones. Urology then recommend the patient be discharged home under stable condition with prescription for Ultram and Keflex and was to follow up with urology clinic in about 1 week post discharge. While here in the hospital patient chronic conditions remained stable. Vital Signs/Physical Exam: Temp Pulse Resp BP Pulse Ox 97.6 F 90 16 150/79 H 96 01/21/18 14:02 01/21/18 14:02 01/21/18 14:02 01/21/18 14:02 01/21/18 12:16 General: Alert, In no apparent distress HEENT: Atraumatic, PERRLA, EOMI Neck: Supple, JVD not distended Respiratory: Clear to auscultation bilaterally, Normal air movement Cardiovascular: Regular rate/rhythm, Normal S1 S2 Gastrointestinal: Normal bowel sounds, No tenderness Musculoskeletal: No tenderness Integumentary: No rashes Neurological: Normal speech, Normal tone, Normal affect Lymphatics: No axilla or inguinal lymphadenopathy Laboratory Data at Discharge: WBC 18.7 K/uL (4.3-10.9) H 01/21/18 04:51 Hgb 13.2 g/dL (13.6-17.9) L 01/21/18 04:51 Hct 45.2 % (39.6-49.0) 01/21/18 04:51 Plt Count 404 K/uL (152-406) 01/21/18 04:51 PT 13.5 SECONDS (9.5-12.5) H 01/17/18 09:45 INR 1.14 01/17/18 09:45 APTT 40.9 SECONDS (24.3-36.9) H 01/17/18 09:45 Sodium 139 mEq/L (135-145) 01/21/18 04:51 Potassium 4.3 mEq/L (3.6-5.0) 01/21/18 04:51 BUN 14 mg/dL (6-20) 01/21/18 04:51 Creatinine 0.72 mg/dL (0.61-1.24) 01/21/18 04:51 Glucose 93 mg/dL (65-120) 01/21/18 04:51 Total Bilirubin 1.0 mg/dL (0.3-1.2) 01/21/18 04:51 AST 20 IU/L (10-42) 01/21/18 04:51 ALT 13 IU/L (10-60) 01/21/18 04:51 Alkaline Phosphatase 71 IU/L (42-121) 01/21/18 04:51 Lipase 19 U/L (22-51) L 01/17/18 09:45 Home Medications: Cephalexin [Keflex] 500 mg PO DAILY #21 cap 01/17/18 Docusate Calcium [Surfak] 240 mg PO BID #28 cap 01/17/18 Metoprolol Tartrate [Lopressor] 25 mg PO BID 01/17/18 Nabumetone [Relafen] 500 mg PO DAILY 01/17/18 Omeprazole 20 mg PO BID 01/17/18 Ondansetron [Zofran] 4 mg PO Q8HR PRN 01/17/18 Oxybutynin Chloride [Oxybutynin Chloride ER] 10 mg PO DAILY #7 tab.er.24 traMADol HCL [Ultram] 50 mg PO Q6H PRN #28 tab 01/17/18 New Medications: Cephalexin [Keflex] 500 mg PO DAILY #21 cap Docusate Calcium [Surfak] 240 mg PO BID #28 cap Oxybutynin Chloride [Oxybutynin Chloride ER] 10 mg PO DAILY #7 tab.er.24 traMADol HCL [Ultram] 50 mg PO Q6H PRN #28 tab PRN Reason: Pain Diet: Regular Activity: Ad leroy Followup: Opal Randall MD [ACTIVE - CAN ADMIT] - 1 Week
[2018-01-21 17:50] LABS: Blood Gas Oxyhemoglobin 91.6 % (94-97)
[2018-01-21 17:57] LABS: Absolute Lymphocytes (CBC) 0.6 K/uL (0.7-4.9); Absolute Monocytes 0.4 K/uL (0.1-1.3); Absolute Neutrophil 13.9 K/uL (1.8-8.0); Basophils % 0.6 % (0-1.3); Eosinophils % 2.5 % (0-4.4); Hematocrit 45.3 % (39.6-49.0); MCH 16.6 pg (27.0-35.0); MCV 58.3 fL (80-100); MPV 9.2 fL (7.6-11.3); Monocytes % 2.7 % (3.3-12.3); RBC Red Blood Cell Count 7.76 M/uL (4.33-5.43)
[2018-01-21 17:59] LABS: Alkaline Phosphatase 65 IU/L (42-121); Bicarbonate 21 mEq/L (21-31); Glucose Level 76 mg/dL (65-120); Potassium 3.9 mEq/L (3.6-5.0); Sodium Level 139 mEq/L (135-145)
[2018-01-21 18:11] LABS: Anisocytosis 2+; Blood Morphology Comment NOTED (NOT SEEN); Hypochromasia 2+; Platelet Estimate INCR; Poikilocytosis 1+
[2018-01-21 18:12] LABS: Elliptocytes 1+
[2018-01-22 06:34] LABS: Absolute Lymphocytes (CBC) 0.7 K/uL (0.7-4.9); Absolute Monocytes 0.5 K/uL (0.1-1.3); Basophils % 0.9 % (0-1.3); Eosinophils % 3.9 % (0-4.4); Hematocrit 43.6 % (39.6-49.0); Lymphocytes % 4.1 % (15.3-44.8); MCH 16.7 pg (27.0-35.0); MPV 9.2 fL (7.6-11.3); Monocytes % 3.3 % (3.3-12.3); RBC Red Blood Cell Count 7.39 M/uL (4.33-5.43)
[2018-01-22] MEDS: NA CHLORIDE 0.9% 1,000 ML IV SCH ×2 (06:34→09:10)
[2018-01-22 06:46] LABS: ALT/SGPT 13 IU/L (10-60); AST/SGOT 16 IU/L (10-42); Albumin 2.7 g/dL (3.2-5.5); Alkaline Phosphatase 60 IU/L (42-121); BUN Blood Urea Nitrogen 13 mg/dL (6-20); Bicarbonate 24 mEq/L (21-31); Bilirubin Total 0.9 mg/dL (0.3-1.2); Glucose Level 70 mg/dL (65-120); Potassium 3.9 mEq/L (3.6-5.0); Protein, Total 5.1 g/dL (6.0-8.3); Sodium Level 141 mEq/L (135-145)
[2018-01-22] MEDS: CEFTRIAXONE/SWI 1gm 1 GM/10 ML SYR IV SCH (09:10)
[2018-01-22] MEDS: DOCUSATE NA 100 MG CAP PO SCH (09:10)
[2018-01-22] MEDS: TAMSULOSIN 0.4 MG SR CAP PO SCH (09:10)
[2018-01-22] MEDS: PANTOPRAZOLE 40MG TABLET PO SCH (09:10)
[2018-01-22] MEDS: METOPROLOL TAR 25 MG TAB PO SCH (09:10)
[2018-01-22] MEDS ORDERED: TRAMADOL HCL 50 MG TAB PO PRN (11:39)
--- NOTE | 2018-01-22 11:39 | P.PN ---
Subjective Date of Service: 01/22/18 Primary Care Provider: None Chief Complaint: Nephrolithiasis with hydronephrosis pt seen and examined with RN. Case D/W with Urology. Currently patient is alert and oriented x3. Is much better than before. States that he feels much better than before his pain is controlled. Currently awaiting PT recommendations at this time Review of Systems General: As per HPI Physical Examination - Vital Signs Temperature: 97.2 F Blood Pressure: 141/80 Pulse: 81 Respirations: 18 Pulse Ox (%): 94 - Physical Exam General: Alert, In no apparent distress HEENT: Atraumatic, PERRLA, EOMI Neck: Supple, JVD not distended Respiratory: Clear to auscultation bilaterally, Normal air movement Cardiovascular: Regular rate/rhythm, Normal S1 S2 Gastrointestinal: Normal bowel sounds, No tenderness Musculoskeletal: No tenderness Integumentary: No rashes Neurological: Normal speech, Normal tone, Normal affect Lymphatics: No axilla or inguinal lymphadenopathy - Studies Medications List Reviewed: Yes Assessment & Plan - Problems (Diagnosis) (1) Sepsis Onset Date: 01/20/18 Current Visit: Yes Status: Acute Plan: Most Likely 2.2 to UTI 2.2 to Stone -PO Keflex now -Blood culture and Urine culture Negative -Leukocytosis improving today. Qualifiers: Sepsis type: sepsis due to unspecified organism Qualified Code(s): A41.9 - Sepsis, unspecified organism (2) Nephrolithiasis Onset Date: 01/20/18 Current Visit: Yes Status: Acute Plan: 9 MM stone on the left. -Urology consulted. Appreciate reccs -S/p Cysto with stent placement -S/P Lithotripsy -CLD, IV fluids and abx for now (3) Hydronephrosis concurrent with and due to calculi of kidney and ureter Onset Date: 01/20/18 Current Visit: Yes Status: Acute Plan: See # 2 (4) HTN (hypertension) Onset Date: 01/20/18 Current Visit: Yes Status: Chronic Qualifiers: Hypertension type: essential hypertension Qualified Code(s): I10 - Essential (primary) hypertension (5) COPD (chronic obstructive pulmonary disease) Onset Date: 01/20/18 Current Visit: Yes Status: Chronic Qualifiers: COPD type: chronic bronchitis Chronic bronchitis type: mixed simple and mucopurulent Qualified Code(s): J41.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
[2018-01-22] MEDS ORDERED: CEPHALEXIN 250 MG CAP PO SCH (12:00)
[2018-01-22] MEDS ORDERED: CEPHALEXIN 500 MG CAP PO SCH (12:00)
--- NOTE | 2018-01-22 13:15 | RAD REPORT ---
EXAM DESCRIPTION: RAD - Abdomen 1 View (KUB) - 01/22/2018 1:06 pm CLINICAL HISTORY: Abdomen pain. FINDINGS: The bowel gas pattern is unremarkable. An approximately 9 millimeter calculus is unchanged in position when compared to the January 19 exam. I t lies adjacent to the proximal aspect of the left ureteral stent.
== END 2018-01-22 16:15 | DRG 872 ==
LOC: ER 08:59 → ERHOLD 11:42 → UNDOADMIN 11:42 → OR 13:06 → 2ND 15:06
PROVIDERS: ADMIT Urology; ATTEND Family Medicine
PROC: 0T777DZ Dilation of Left Ureter with Intraluminal Device, Via Natural or Artificial Opening (ICD-10-PCS; 2018-01-17)
PROC: 0TP97DZ Removal of Intraluminal Device from Ureter, Via Natural or Artificial Opening (ICD-10-PCS; 2018-01-21)
PROC: 0T777DZ Dilation of Left Ureter with Intraluminal Device, Via Natural or Artificial Opening (ICD-10-PCS; 2018-01-21)
PROC: 0TF4XZZ Fragmentation in Left Kidney Pelvis, External Approach (ICD-10-PCS; principal; 2018-01-21 12:15)
DX: A41.9 Sepsis, unspecified organism (principal); N13.2 Hydronephrosis with renal and ureteral calculous obstruction; I10 Essential (primary) hypertension
CPT/HCPCS: 36415; 50590; 51610; 71045; 74018; 74176; 74177; 74450; 80048; 80053; 80076; 80202; 82805; 83690; 85025; 85610; 85730; 87040; 87086; 87088; 93005; 93971; 94760; 96361; 96374; 97163; 99285; J0696; J2250; J2270; J3010; J7030; Q9967